=== PATIENT | female | born 1970 | race Caucasian/White ===

== ENCOUNTER → 2016-12-28 | Outpatient (CLI) | payer OTHER ==
--- NOTE | 2016-12-28 13:04 | CT ---
EXAM DESCRIPTION: Chest w/Contrast CLINICAL HISTORY: R91.8 abnormal chest x-ray. Cough. COMPARISON: None. TECHNIQUE: Postcontrast CT images of the chest are obtained. CT scan done according to ALARA (As Low As Reasonably Achievable). FINDINGS: The heart and great vessels are unremarkable. No pathologically enlarged lymphadenopathy is seen. No pleural or pericardial effusion. Visualized portion of the upper abdomen shows some decreased attenuation in the liver that could represent diffuse fatty infiltration. Cholecystectomy changes are seen. The lungs are normally aerated. Mild centrilobular emphysematous changes are seen. Mild peripheral interstitial thickening in the bilateral upper lobes is seen with mild areas of groundglass attenuation in the parenchyma. Faint less than 2 or 3 mm noncalcified nodule densities in the periphery of the right upper lumbar seen. There is a 4 mm noncalcified pulmonary nodule in the left upper lobe on image 30. The osseous structures show no aggressive bony lesions. Mild spondylitic changes of the spine are seen. IMPRESSION: Mild emphysematous changes to the lungs are seen. Mild peripheral interstitial thickening with areas of groundglass attenuation in the upper lobes right greater than left are seen and could represent chronic interstitial fibrotic changes. Scattered nonspecific less than 4 mm noncalcified pulmonary nodules are seen in the lungs. The largest is seen in the central left upper lobe. Recommend follow-up CT imaging with low-dose noncontrast CT imaging protocol in 6-12 months to determine long-term stability of these findings. Electronically signed by: Fredo Mayes MD 12/28/2016 1:03 PM [employer]
== END | disposition home or self-care (01) ==
LOC: CT 09:39
PROVIDERS: ATTEND General Practice
DX: R91.8 Other nonspecific abnormal finding of lung field (principal)